=== PATIENT | male | born 1955 | race American Indian/Alaskan Native ===

== ENCOUNTER 2018-05-20 16:15 | Emergency (ER) | payer SELFPAY ==
[~2018-05-20] VITALS: Ht 177.8 cm; Wt 93.0 kg
[~2018-05-20 16:15] MED LIST: ERGO50000 PO; Flomax0.4 MG PO; HYDMOR4 PO; LORA.5 PO; Pyridium200 MG PO; TAMS.4ER PO; TRAM50 PO; Zanaflex4 M1 PO
== END 2018-05-20 19:15 | disposition left against medical advice (07) ==
LOC: ER 16:15
DX: Z53.21 Procedure and treatment not carried out due to patient leaving prior to being seen by health care provider (principal); N48.89 Other specified disorders of penis
CPT/HCPCS: 99281

== ENCOUNTER 2018-11-14 20:05 | Emergency (ER) | payer MEDICARE ==
[~2018-11-14] VITALS: Ht 180.3 cm; Wt 90.7 kg
[2018-11-14] MEDS ORDERED: CLOB.05TO TOP (21:10)
== END 2018-11-14 21:25 | disposition home or self-care (01) ==
LOC: ER 20:05
DX: L24.0 Irritant contact dermatitis due to detergents (principal); F41.9 Anxiety disorder, unspecified; Z91.030 Bee allergy status; Z79.899 Other long term (current) drug therapy; Z87.891 Personal history of nicotine dependence
CPT/HCPCS: 99283

== ENCOUNTER 2025-01-04 15:42 | Emergency (ER) | payer MEDICARE ==
[~2025-01-04] VITALS: Ht 177.8 cm; Wt 86.2 kg
[~2025-01-04 15:42] MED LIST changes: +CLOB.05TO TOP
[2025-01-04 16:20] LABS: BASOPHILS ABSOLUTE AUTO 0.05 K/mm3 (0.00-0.23); BASOPHILS PERCENT AUTO 1 % (0-2); EOSINOPHILS ABSOLUTE AUTO 0.38 K/mm3 (0.00-0.68); EOSINOPHILS PERCENT AUTO 4 % (0-6); Hematocrit 37.1 % (37.0-53.0); Hemoglobin 12.0 g/dL (13.5-17.5); IMMATURE GRAN ABSOLUTE AUTO 0.02 K/mm3 (0.00-0.10); IMMATURE GRAN PERCENT AUTO 0 % (0-1); LYMPHOCYTES ABSOLUTE AUTO 2.85 K/mm3 (0.84-5.20); LYMPHOCYTES PERCENT AUTO 27 % (21-46); MONOCYTES ABSOLUTE AUTO 0.92 K/mm3 (0.16-1.47); MONOCYTES PERCENT AUTO 9 % (4-13); Mean Corpuscular HGB Conc 32.3 g/dL (31.5-36.5); Mean Corpuscular Volume 85 fL (80-100); NEUTROPHILS ABSOLUTE AUTO 6.19 K/mm3 (1.96-9.15); NEUTROPHILS PERCENT AUTO 59 % (41-73); NRBC ABSOLUTE 0.00 K/mm3 (0.00-0.02); NRBC Auto 0.0 /100 WBC (0.0-0.2); Platelet Count 257 K/mm3 (150-400); RDW Coefficient Variation 14.6 % (11.7-14.2); RDW Standard Deviation 45.3 fL (35.1-46.3)
[2025-01-04 16:44] LABS: Alanine Aminotransfer (ALT/SGP 35.0 U/L (12-78); Albumin, Blood 3.2 g/dL (3.4-5.0); Albumin/Globulin Ratio 0.9 (0.8-1.8); Anion Gap 7.0 mmol/L (3-11); Aspartate Aminotrans (AST/SGOT 38.0 U/L (12-37); Bilirubin, Total 0.3 mg/dL (0.1-1.0); Blood Urea Nitrogen 17.0 mg/dL (8-24); CO2, Blood 25.0 mmol/L (21-32); Calcium, Blood 9.1 mg/dL (8.5-10.1); Chloride, Blood 110.0 mmol/L (98-108); Creatinine, Blood 0.88 mg/dL (0.60-1.20); Globulin, Blood 3.6 g/dL (2.2-4.0); Glucose, Blood 121.0 mg/dL (70-99); Potassium, Blood 3.9 mmol/L (3.5-5.5); Sodium, Blood 138.0 mmol/L (136-145); Total Protein, Blood 6.8 g/dL (6.4-8.2)
[2025-01-04] MEDS ORDERED: Ketorolac Tromethamine 15mg Vial IV ONE (19:00)
[2025-01-04] MEDS ORDERED: Morphine Sulfate 4 MG/1 ML Injection IV ONE (19:05)
[2025-01-04 19:06] LABS: BODY FLUID RBC 0.015 M/mm3 (0-0)
[2025-01-04 19:15] LABS: RBC Count, Synovial Fluid 15000 /mm3 (0-0); WBC Count, Synovial Fluid 289 /mm3 (0-180)
[2025-01-04] MEDS ORDERED: DOXY100 PO (19:25)
[2025-01-04] MEDS ORDERED: ACET500 PO (19:25)
[2025-01-04] MEDS ORDERED: IBUP600 PO (19:25)
[2025-01-04 19:48] LABS: Lymphs, Synovial Fluid 47 % (0-15); Monocytes/Macrophages, Synovia 26 % (0-65); Neutrophils, Synovial Fluid 27 % (0-24)
[2025-01-04 19:49] LABS: Appearance, Synovial Fluid Hazy (Clear); Color, Synovial Fluid Yellow (None-P Yel)
[2025-01-04 19:57] VITALS: BP 137/97
== END 2025-01-04 19:57 | disposition home or self-care (01) ==
LOC: ER 15:42
PROVIDERS: Emergency Medicine; Student in an Organized Health Care Education/Training Program
DX: M11.262 Other chondrocalcinosis, left knee (principal); L03.116 Cellulitis of left lower limb; Z87.891 Personal history of nicotine dependence; Z91.030 Bee allergy status; Z79.899 Other long term (current) drug therapy
CPT/HCPCS: 20610; 36415; 73562-LT; 80053; 83605; 83690; 85025; 85651; 86140; 87040; 87070; 87205; 89051; 89060; 96374-59; 96375-59; 99283-25; A9270; J1885; J2270

== ENCOUNTER 2025-03-04 19:06 | Emergency (ER) | payer MEDICARE ==
[~2025-03-04] VITALS: Ht 182.9 cm; Wt 95.2 kg
[~2025-03-04 19:06] MED LIST changes: +ACET500 PO; +DOXY100 PO; +IBUP600 PO
[2025-03-04 19:37] VITALS: BP 144/84
== END 2025-03-04 20:40 | disposition left against medical advice (07) ==
LOC: ER 19:06
DX: Z53.21 Procedure and treatment not carried out due to patient leaving prior to being seen by health care provider (principal)
CPT/HCPCS: G0378